=== PATIENT | female | born 1985 | race African-American/Black ===

== ENCOUNTER 2016-12-19 15:02 | Emergency (ER) | payer MEDICAID, OTHER ==
[~2016-12-19] VITALS: Ht 165.1 cm; Wt 73.0 kg
[2016-12-19] MEDS ORDERED: HYDROCODONE/ACETAMINOPHEN 5/325MG TABLET PO ONE (15:30)
[2016-12-19] MEDS ORDERED: KETOROLAC 60MG/2ML VIAL IM ONE (15:30)
[2016-12-19 16:18] LABS: HCG SCREEN NEGATIVE
[2016-12-19] MEDS ORDERED: IBUPROFEN 800MG TABLET PO ONE (17:30)
[2016-12-19 19:30] VITALS: BP 99/67
== END 2016-12-19 20:30 | disposition home or self-care (01) ==
LOC: ER 15:51
DX: M54.2 Cervicalgia (principal); M25.511 Pain in right shoulder; M67.432 Ganglion, left wrist; V43.52XA Car driver injured in collision with other type car in traffic accident, initial encounter; Y93.89 Activity, other specified; Y92.481 Parking lot as the place of occurrence of the external cause
CPT/HCPCS: 73110; 73130; 84703; 96372; 99285; J1885; Z7610; L0172